=== PATIENT | male | born 1990 | race Caucasian/White ===

== ENCOUNTER 2017-03-02 15:16 | Emergency (ER) | payer MEDICAID ==
[~2017-03-02] VITALS: Ht 180.3 cm; Wt 108.9 kg
[2017-03-02 15:22] VITALS: BP 128/80
--- NOTE | 2017-03-02 15:31 | NUR ---
Patient ambulated to bed 5 with family. RN evaluating patient at bedside.
--- NOTE | 2017-03-02 15:42 | NUR ---
Dr. Edmonds evaluating patient at bedside.
--- NOTE | 2017-03-02 15:45 | NUR ---
PATIENT PRESENTS TO ED WITH C/O DIZZINESS SINCE THURSDAY NO N/V/D; LAST SEEN ON THURSDAY FOR [facility] WITH N/V;RX OF ZOFRAN . SKIN IS PINK/WARM/DRY; AAOX4 WITH EVEN AND STEADY GAIT; LUNGS CLEAR BL; HR EVEN AND REGULAR; PT DENIES ANY FEVER,OR COUGH AT THIS TIME; PATIENT STATES PAIN OF 0/10 AT THIS TIME;PATIENT POSITIONED FOR COMFORT; HOB ELEVATED; BEDRAILS UP X2; BED DOWN. ALL MONITORS IN PLACED;ER MD MADE AWARE OF PT STATUS.
[2017-03-02] MEDS ORDERED: DIAZEPAM PFS 10 MG/2 ML SYR IM ONE (15:50)
--- NOTE | 2017-03-02 16:08 | NUR ---
PT C/O CHEST PAIN AND WEAKNESS;ER MD NOTIFIED;
[2017-03-02 16:51] VITALS: BP 153/77
--- NOTE | 2017-03-02 16:51 | NUR ---
Patient discharged with v/s stable. Written and verbal after care instructions given and explained. Patient alert, oriented and verbalized understanding of instructions. Ambulatory with steady gait. All questions addressed prior to discharge. ID band removed. Patient advised to follow up with PMD. Rx of VALIUM given. Patient educated on indication of medication including possible reaction and side effects. Opportunity to ask questions provided and answered.
== END 2017-03-02 16:51 | disposition home or self-care (01) ==
LOC: MED 15:16
DX: R42 Dizziness and giddiness (principal); R11.2 Nausea with vomiting, unspecified; F17.210 Nicotine dependence, cigarettes, uncomplicated; F12.90 Cannabis use, unspecified, uncomplicated; Z88.8 Allergy status to other drugs, medicaments and biological substances; Z90.89 Acquired absence of other organs
CPT/HCPCS: 96372; 99283; J3360

== ENCOUNTER 2017-11-25 16:01 | Emergency (ER) | payer SELFPAY ==
[~2017-11-25] VITALS: Ht 177.8 cm; Wt 108.9 kg
[2017-11-25 16:05] VITALS: BP 148/80
--- NOTE | 2017-11-25 16:15 | NUR ---
PT AMBULATED TO ER BED 04
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
[2017-11-25] MEDS ORDERED: NEOMYCIN/POLYMYXIN/BACITRACIN 0.9 GM/1 PKT TP ONE (17:00)
[2017-11-25] MEDS ORDERED: LIDOCAINE 1% 500 MG/50 ML VIAL INJ SCH (17:00)
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
[2017-11-25] MEDS ORDERED: LIDOCAINE MPF 1% - **ER/OR** 5 ML ONE (17:01)
[2017-11-25 17:22] VITALS: BP 142/80
--- NOTE | 2017-11-25 17:22 | NUR ---
Patient discharged with v/s stable. Written and verbal after care instructions given and explained. Patient verbalized understanding. Ambulatory with steady gait. All questions addressed prior to discharge. Advised to follow up with PMD.
== END 2017-11-25 17:22 | disposition home or self-care (01) ==
LOC: MED 16:01
DX: S51.811A Laceration without foreign body of right forearm, initial encounter (principal); Z88.8 Allergy status to other drugs, medicaments and biological substances; W26.0XXA Contact with knife, initial encounter; Y93.01 Activity, walking, marching and hiking; Y92.89 Other specified places as the place of occurrence of the external cause; Y99.8 Other external cause status
CPT/HCPCS: 12001; 90471; 90715; 99283; J2001

== ENCOUNTER 2024-02-10 19:42 | Emergency (ER) | payer OTHER ==
[2024-02-10] MEDS ORDERED: CEPH-588 PO (22:35)
[2024-02-10] MEDS ORDERED: ACET-10509 PO (22:35)
== END 2024-02-10 20:01 | disposition left against medical advice (07) ==
LOC: MED 19:42
DX: M79.646 Pain in unspecified finger(s) (principal); Z53.21 Procedure and treatment not carried out due to patient leaving prior to being seen by health care provider

== ENCOUNTER 2024-02-10 21:20 | Emergency (ER) | payer OTHER ==
[~2024-02-10] VITALS: Ht 180.3 cm; Wt 117.9 kg
[2024-02-10 21:36] VITALS: BP 148/104; PULSE 97; RESP 16; TEMP 97.2; O2SAT 97
[2024-02-10] MEDS ORDERED: CEPH-588 PO (22:35)
[2024-02-10] MEDS ORDERED: ACET-10509 PO (22:35)
== END 2024-02-10 22:40 | disposition home or self-care (01) ==
LOC: MED 21:20
DX: L03.012 Cellulitis of left finger (principal); Z79.899 Other long term (current) drug therapy; Z88.6 Allergy status to analgesic agent
CPT/HCPCS: 73140; 99283